=== PATIENT | female | born 1965 | race Caucasian/White ===

== ENCOUNTER → 2016-09-28 12:54 | Outpatient (CLI) | payer MEDICAID | END | disposition home or self-care (01) | LOC: D.US 12:54 | DX: Z12.31 Encounter for screening mammogram for malignant neoplasm of breast (principal) ==

== ENCOUNTER → 2016-10-05 08:45 | Outpatient (CLI) | payer MEDICAID | END | disposition home or self-care (01) | LOC: D.CT 08:45 | DX: R94.39 Abnormal result of other cardiovascular function study (principal) ==

== ENCOUNTER 2016-10-17 20:39 | Emergency (ER) | payer MEDICAID ==
[2016-10-17 21:19] LABS: BASOPHILS 0.3 % (0-2); EOSINOPHILS 2.9 % (0-7); HEMATOCRIT 41.5 % (36.0-48.0); HEMOGLOBIN 14.1 g/dL (12-16); IMMATURE GRANULOCYTES 0.1 % (0-5); LYMPHOCYTES 38.2 % (15-50); MCH 29.2 pg (26.0-34.0); MCV 85.9 fL (80.0-100.0); MEAN PLATELET VOLUME 8.8 fL (7.4-10.4); NEUTROPHILS 48.5 % (40-80); PLATELET COUNT 242 10x3/uL (130-400); RBC 4.83 10x6/uL (4.00-5.40); WBC 6.9 10x3/uL (4.8-10.8)
[2016-10-17 21:59] LABS: ALBUMIN 3.8 g/dL (3.4-5.0); ALKALINE PHOSPHATASE 92 U/L (46-116); ALT (SGPT) 31 U/L (10-68); BILIRUBIN - TOTAL 0.69 mg/dL (0.2-1.3); CALC OSMOLALITY 279 mosm/kg (275-300); CARBON DIOXIDE 19.5 mmol/L (21.0-32.0); CHLORIDE - SERUM 105 mmol/L (98-107); CREATININE - SERUM 0.7 mg/dL (0.6-1.3); GLUCOSE 107 mg/dL (74-106); MAGNESIUM - SERUM 1.6 mg/dL (1.8-2.4); POTASSIUM - SERUM 3.5 mmol/L (3.5-5.1); PROTEIN - SERUM 7.7 g/dL (6.4-8.2); SODIUM 140 mmol/L (136-145); UREA NITROGEN 14 mg/dL (7-18); eGFR NON AFRICAN AMERICAN > 90 mL/min (90-120)
[2016-10-18 00:46] LABS: APPEARANCE HAZY (CLEAR); BILIRUBIN NEGATIVE (NEGATIVE); COLOR YELLOW (YELLOW); GLUCOSE NEGATIVE (NEGATIVE); KETONE NEGATIVE (NEGATIVE); LEUKOCYTE ESTERASE TRACE (NEGATIVE); NITRITE NEGATIVE (NEGATIVE); PROTEIN NEGATIVE (NEGATIVE); SPECIFIC GRAVITY 1.025 (1.005-1.020); UROBILINOGEN NORMAL (NORMAL)
[2016-10-18 00:47] LABS: UDS - AMPHET NEGATIVE QUAL (NEGATIVE); UDS - BARB NEGATIVE QUAL (NEGATIVE); UDS - BENZO NEGATIVE QUAL (NEGATIVE); UDS - COCAINE NEGATIVE QUAL (NEGATIVE); UDS - METH NEGATIVE QUAL (NEGATIVE); UDS - OPIATE NEGATIVE QUAL (NEGATIVE); UDS - PCP NEGATIVE QUAL (NEGATIVE); UDS - THC NEGATIVE QUAL (NEGATIVE)
[2016-10-18 00:53] LABS: WHITE CELLS - URINE 0-5 /hpf (0-5)
[2016-10-18 00:54] LABS: AMORPHOUS SEDIMENT >1+ /lpf (NONE SEEN); BACTERIA MODERATE /hpf (NONE SEEN); EPITHELIAL CELLS 0-5 /hpf (0-5); GRANULAR CAST OCC /lpf (NONE SEEN); HYALINE CAST OCC /lpf (NONE SEEN); RED CELLS - URINE OCC /hpf (0-5)
== END 2016-10-18 05:53 | disposition short-term general hospital (02) ==
LOC: D.ER 20:39
PROVIDERS: Emergency Medicine
DX: F41.9 Anxiety disorder, unspecified (principal); F32.9 Major depressive disorder, single episode, unspecified; E83.42 Hypomagnesemia; F23 Brief psychotic disorder; E05.00 Thyrotoxicosis with diffuse goiter without thyrotoxic crisis or storm

== ENCOUNTER → 2016-11-14 13:33 | Outpatient (CLI) | payer MEDICAID ==
[2016-11-15 10:19] LABS: HEPATITIS C ANTIBODY 0.1 (0.0-0.9)
== END | disposition home or self-care (01) ==
LOC: D.RT 13:33
PROVIDERS: Internal Medicine Cardiovascular Disease
DX: Z01.812 Encounter for preprocedural laboratory examination (principal)

== ENCOUNTER 2016-11-27 07:30 | Inpatient (IN) | payer MEDICAID ==
--- NOTE | 2016-11-24 13:04 | HP ---
PATIENT: MELITON VEE KEVIN MEDICAL RECORD: [id number] ACCOUNT: [id number] LOCATION:[facility] : 65 ADMISSION DATE: 11/27/16 HISTORY AND PHYSICAL EXAMINATION MELITON Silva (51yo, F) ID# [id number]. Date/Time11/22/2016 09:75VDDYV89/22/1966[facility] Dept.NPP_[facility] ClinicProviderGABRIELA RICO MDInsuranceMed Primary: [place] Insurance # : [id number] Employer Name : [employer] Prescription: [employer] MEDICAID ADMINISTRATION - Member is eligible. Chief Complaint Followup: Arteriosclerosis of abdominal aorta PFT/carotid doppler/lab Patient's Care Team Primary Care Provider: LIVE CAIN MD: [address] [place] [address] [address], [place] [address], , [facility] Pharmacies [facility] [place] [address] (ERX): [phone] [facility] [id number], , Vitals BP:150/80 sitting R arm 11/22/2016 10:45 amHR:80R/R 11/22/2016 10:45 amHt:5 ft 7 in 11/22/2016 10:27 amWt:225 lbs 11/22/2016 10:43 amBMI:35.2 11/22/2016 10:43 amAllergies Reviewed Allergies NKDAMedications Reviewed Medications Ciprodex 0.3 %-0.1 % ear drops,atxuyotimm52/06/17 [facility] XjbvmhidgpjrlnDmk-B-Vehs 100 mg edonfgw85/30/15 filledsurescriptsglipiZIDE ER 5 mg tablet, extended release 24 hr10/08/16 filledNygellan Medicaid AdministrationHYDROcodone 10 mg-acetaminophen 325 mg qdexes46/14/17 filledMagellan Medicaid AdministrationlamoTRIgine 100 mg aaicey51/24/17 filledMagellan Medicaid AdministrationlamoTRIgine 150 mg hwegxu10/26/17 filledNygellan Medicaid AdministrationlamoTRIgine 25 mg vdrefg41/01/17 filledMagellan Medicaid Administrationlatanoprost 0.005 % eye drops09/27/16 filledMagellan Medicaid Administrationlidocaine 5 % topical mwoobyxs80/30/15 filledMEDCOlisinopril 20 mg-hydrochlorothiazide 25 mg jkmcpe50/06/15 filledMEDCOmeloxicam 15 mg fwcoyn42/28/15 filledMEDCOmetFORMIN 1,000 mg qqsooq62/06/15 filledMEDCOmethocarbamol 500 mg oehilt35/06/15 filledMEDCOmethocarbamol 750 mg lvuqyi58/24/15 filledMEDCOnicotine 21 mg/24 hr daily transdermal patch02/09/15 filledMEDCOOneTouch Delica Lancets 33 gauge02/17/15 filledMEDCOOneTouch Verio IQ Meter02/17/15 filledMEDCOOneTouch Verio /15/15 filledMEDCOoxyCODONE-acetaminophen 10 mg-325 mg yogcxm73/24/15 filledMEDCOpravastatin 40 mg /23/17 filledMagellan Medicaid Administrationpravastatin 80 mg /05/17 filledMagellan Medicaid Administrationsertraline 100 mg fbgnja67/12/17 filledMagellan Medicaid Administrationsertraline 25 mg nvgqko60/05/17 filledMagellan Medicaid Administrationsertraline 50 mg /08/17 filledMagellan Medicaid AdministrationtraMADol 50 mg cquuaz19/03/15 filledMEDCOvenlafaxine ER 75 mg capsule,extended release 24 hr02/08/15 filledMEDCOProblems Reviewed Problems Diabetes mellitus Depressive disorder Nicotine dependence HISTORY AND PHYSICAL [id number] MELITON VEE Essential hypertension Hemorrhoids Anal fissure Painful rectal bleeding Arteriosclerosis of abdominal aorta - 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 Family History Reviewed Family History Father- Diabetes mellitus (onset age: 60) - Hypertensive disorderMother- Arthritis - Lupus erythematosusSocial History Reviewed Social History Cardiology Family history of heart disease?: N Smoking Status: Current every day smoker Smoker (2 PPD) High blood pressure: Y Exercise level: Occasional Diabetes: Y Alcohol intake: Occasional Marital status: Surgical History Reviewed Surgical History Other - 01/24/2015 - S1/L5 FUSION Other - 1992 - repair of pritruding disc ex lap 1985 fluid in fallopian tubes, cervical ablation 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 HPI Peripheral Vascular Disease Reported by patient. Location: calf; foot Quality: cramping; burning; aching Severity: interferes with normal activity Onset/Timing: continuous Context: during walking; at rest occlusion of abdominal aorta ROS Patient reports exercise intolerance but reports no fever, no night sweats, no significant weight gain, and no significant weight loss; secondary to claudication 15 to 20 feet. She reports muscle aches, muscle weakness, and arthralgias/joint pain HISTORY AND PHYSICAL [id number] NANDA,MELITONSA BROWN but reports no back pain and no swelling in the extremities. She reports depression but reports no sleep disturbances, feeling safe in relationship, and no alcohol abuse. She reports no dry eyes, no irritation, and no vision change. She reports no difficulty hearing and no ear pain. She reports no frequent nosebleeds and no nose/sinus problems. She reports no sore throat, no bleeding gums, no snoring, no dry mouth, no mouth ulcers, no oral abnormalities, and no teeth problems. She reports no jugular vein distension and no swollen glands. She reports no chest pain, no arm pain on exertion, no shortness of breath when walking, no shortn e ss of breath when lying down, no palpitations, and no known heart murmur. She reports no cough, no wheezing, no shortness of breath, and no coughing up blood. She reports no abdominal pain, no vomiting, normal appetite, no diarrhea, not vomiting blood, no nausea, and no constipation. She reports no incontinence, no difficulty urinating, no hematuria, and no increased frequency. She reports no abnormal mole, no jaundice, and no rashes. She reports no loss of consciousness, no weakness, no numbness, no seizu res, no dizziness, and no headaches. She reports no fatigue. She reports no swollen glands and no bruising. She reports no runny nose, no sinus pressure, no itching, no hives, and no frequent sneezing. ROS as noted in the HPI Physical Exam Patient is a 51-year-old female. Constitutional: General Appearance healthy-appearing, well developed, and overweight. Level of Distress NAD. Ambulation ambulating normally; claudication. Cardiovascular: Apical Impulse not displaced or no thrill. Heart Auscultation norm al s1 and s2; no murmurs, rubs, or gallops; and RRR. Arterial Pulses no abdominal aorta bruits, femoral bruits, or popliteal bruits; femoral not palpable (bilateral), popliteal not palpable (bilateral), and dorsalis pedis not palpable (bilaterally); and 2+ bilateral, carotid 2+ bilateral, and femoral 2+ bilateral. Edema no edema or varicosities. Lungs: Repiratory Effort no dyspnea. Percussion no hyperresonance or dullness or flatness. Auscultation no wheezing, rhonchi, or rales / crackles and breathing sounds normal, good air movement, and CTA except as noted. Abdomen: Bowl Sounds normal. Inspection and Palpation no tenderness, guarding, masses, or rebound tenderness and soft and non-distended. Liver non-tender and no hepatomegaly. Spleen non-tender and no splenomegaly. Hernia none palpable. Musculoskeletal System: Gait And Stance normal gait and stance. Digits and Nails normal nails, no cyanosis, and abnormal nails. Neurologic: Cranial Nerves grossly intact. Reflexes DTRs 2+ bilaterally throughout. Sensation grossly intact. Lymph Nodes: Lymph Nodes no cervical LAD, supraclavicular LAD, axillary LAD, or inguinal LAD. Eyes: Lids and Conjunctivae no discharge or pallor and non-injected and xanthelasma (OS). Pupils PERRLA. Cornea grossly intact. EOM EOMI. Lens clear. Sclera non-icteric. Neck: Neck no masses, enlarged lymph nodes, or carotid bruits and supple and trachea midline. Thyroid no enlargement or nodules and non-tender. HISTORY AND PHYSICAL [id number] MELITON VEE Skin: Inspection and Palpation no rash, lesions, ulcers, jaundice, or abnormal nevi. Assessment / Plan pulmonary function tests satisfactory for surgery Carotid Doppler study satisfactory mild disease Hepatitis screen was negative Occlusion of abdominal aorta and severe claudication 1. Arteriosclerosis of abdominal aorta I70.0: Atherosclerosis of aorta Discussion Notes I have discussed her disease process with her in detail as well as the alternative methods of treatment. We discussed aorto bifemoral bypass and the expected benefits and risks which incl ude bleeding, infection, stroke, , and the imponderables. She understands all of the above and wishes to proceed with aortobifemoral bypass. She will need a bowel prep Prior to surgery Schedule GABRIELA RICO MD at 1304 CC: [id number] DICTATION DATE: 11/22/1630 [employer] SALES REPRESENTATIVE: MAXWELL 11/23/16 1405 PRE [facility] [address] [place] [address]
[2016-11-26 10:39] LABS: APTT 24.5 SECONDS (22.8-39.4); INR 0.81 (0.85-1.17); PROTIME 11.1 SECONDS (11.6-15.0)
[2016-11-26 10:49] LABS: ALBUMIN 3.6 g/dL (3.4-5.0); ALKALINE PHOSPHATASE 103 U/L (46-116); ALT (SGPT) 25 U/L (10-68); CALC OSMOLALITY 285 mosm/kg (275-300); CALCIUM 9.1 mg/dL (8.5-10.1); CARBON DIOXIDE 27.7 mmol/L (21.0-32.0); CHLORIDE - SERUM 104 mmol/L (98-107); CREATININE - SERUM 0.6 mg/dL (0.6-1.3); POTASSIUM - SERUM 4.3 mmol/L (3.5-5.1); PROTEIN - SERUM 7.5 g/dL (6.4-8.2); SODIUM 139 mmol/L (136-145); UREA NITROGEN 12 mg/dL (7-18); eGFR NON AFRICAN AMERICAN > 90 mL/min (90-120)
[2016-11-26 10:50] LABS: GLUCOSE 250 mg/dL (74-106)
[2016-11-26 11:01] LABS: BASOPHILS 0.3 % (0-2); EOSINOPHILS 2.3 % (0-7); HEMATOCRIT 44.5 % (36.0-48.0); HEMOGLOBIN 14.9 g/dL (12-16); IMMATURE GRANULOCYTES 0.1 % (0-5); LYMPHOCYTES 30.9 % (15-50); MCHC 33.5 g/dL (31.0-37.0); MCV 86.7 fL (80.0-100.0); MEAN PLATELET VOLUME 9.3 fL (7.4-10.4); MONOCYTES 7.8 % (2-11); NEUTROPHILS 58.6 % (40-80); PLATELET COUNT 268 10x3/uL (130-400); RBC 5.13 10x6/uL (4.00-5.40); WBC 6.8 10x3/uL (4.8-10.8)
[2016-11-26 11:15] LABS: APPEARANCE CLEAR (CLEAR); BILIRUBIN NEGATIVE (NEGATIVE); COLOR STRAW (YELLOW); EPITHELIAL CELLS 0-5 /hpf (0-5); GLUCOSE 50 mg/dL (NEGATIVE); KETONE NEGATIVE (NEGATIVE); LEUKOCYTE ESTERASE TRACE (NEGATIVE); NITRITE NEGATIVE (NEGATIVE); PROTEIN NEGATIVE (NEGATIVE); UROBILINOGEN NORMAL (NORMAL); WHITE CELLS - URINE OCC /hpf (0-5)
[2016-11-26 11:16] LABS: BACTERIA MODERATE /hpf (NONE SEEN); MUCUS <1+ /lpf (NONE SEEN)
[~2016-11-27] VITALS: Ht 172.7 cm; Wt 111.9 kg
[2016-11-27] VITALS (40 sets, daily range): BP systolic 90–145; BP diastolic 46–72; BMI 37.1
[2016-11-27 06:42] LABS: POTASSIUM - SERUM 3.5 mmol/L (3.5-5.1)
[~2016-11-27 07:30] MED LIST: GLUCOPHAGE1000 MG PO; HYDROCODONE-APA1 TAB PO; LAMICTAL150 MG PO; LISINOPRIL-HCTZ1 T13 PO; PRAVACHOL80 MG PO; VENTOLIN HFA18 GM INH; XALATAN 0.0052.5 ML EACH EYE
--- NOTE | 2016-11-27 14:34 | NUR ---
PT ARRIVED BY BED FROM OR WITH OR TEAM. SWITCHED OVER TO ICU MONITORS. VENT A/C R14 TV 650 P5 FIO2 AT 100%. BILATERAL HEELS BRIDGED. EPIDURAL INFUSING AT 8CC/HR BASAL RATE.
[2016-11-27 14:59] LABS: HEMATOCRIT 41.9 % (36.0-48.0); MCHC 33.4 g/dL (31.0-37.0); MCV 86.9 fL (80.0-100.0); MEAN PLATELET VOLUME 8.8 fL (7.4-10.4); RBC 4.82 10x6/uL (4.00-5.40); RDW 14.4 % (11.5-14.5)
[2016-11-27 15:02] LABS: WBC 14.6 10x3/uL (4.8-10.8)
--- NOTE | 2016-11-27 15:06 | NUR ---
PT MAXED ON NITRO GTT. SWITCHED OVER TO CLEVIPREX. WILL TITRATE PER MD ORDERS.
[2016-11-27 15:44] LABS: ALBUMIN 2.9 g/dL (3.4-5.0); ALKALINE PHOSPHATASE 76 U/L (46-116); ALT (SGPT) 29 U/L (10-68); BILIRUBIN - TOTAL 0.54 mg/dL (0.2-1.3); CALCIUM 7.5 mg/dL (8.5-10.1); CARBON DIOXIDE 24.1 mmol/L (21.0-32.0); CHLORIDE - SERUM 108 mmol/L (98-107); CREATININE - SERUM 0.7 mg/dL (0.6-1.3); POTASSIUM - SERUM 3.8 mmol/L (3.5-5.1); PROTEIN - SERUM 6.1 g/dL (6.4-8.2); SODIUM 144 mmol/L (136-145); UREA NITROGEN 10 mg/dL (7-18); eGFR NON AFRICAN AMERICAN > 90 mL/min (90-120)
[2016-11-27 15:45] LABS: CALC OSMOLALITY 294 mosm/kg (275-300); GLUCOSE 261 mg/dL (74-106)
--- NOTE | 2016-11-27 16:10 | NUR ---
PT MORE ALERT. ABLE TO ANSWER YES/NO QUESTIONS. PT MILDLY AGGIATATED AT THIS TIME. REORIENTED PT AND ENCOURAGED PT TO STAY CALM. COMPUTER AIDED DESIGN TECHNICIAN BUTTON ON EPIDURAL PUSHED.
--- NOTE | 2016-11-27 17:35 | NUR ---
DR. RICO AT BEDSIDE. UPDATED ON PT'S STATUS. PT REACHING TOWARDS ABDOMEN AND SHAKING HEAD YES WHEN ASKED IF SHE IS HURTING. WILL PAGE ELECTRICIAN POWERHOUSE ANESTHESIA PER DR. RICO REQUEST.
--- NOTE | 2016-11-27 17:50 | NUR ---
DR. KIM NOTIFIED OF EPIDURAL NOT HELPING PT'S PAIN AT THIS TIME. HE IS CURRENTLY IN SURGERY, BUT WILL ROUND WHEN HE IS FINISHED.
--- NOTE | 2016-11-27 18:18 | NUR ---
PT RESTING COMFORTABLY AT THIS TIME. EYES CLOSED. VSS.
--- NOTE | 2016-11-27 19:10 | NUR ---
DR. KIM AND DR. LEBRON AT BEDSIDE. PT UP TO SIDE OF BED WITH MODERATE AMOUNT OF ASSISTANCE. ABLE TO FOLLOW COMMANDS. DR. KIM REMOVED PREVIOUS EPIDURAL CATHETER AND RESITED NEW CATHETER. PT TOLERATED WELL. BP 97/45. CLEVIPREX GTT STOPPED. EPIDURAL SECURED BY ANESTHESIA. PT ASSISTED BACK INTO BED. PT IS REPORTING IMPOVED PAIN. HANDOFF REPORT GIVEN TO MICAELA GARAY RN.
--- NOTE | 2016-11-27 19:15 | NUR ---
PT REC'D LYING IN BED, HOB 30 DEGREES, AWAKE AND ALERT FOLLOWING COMMANDS ON VENT, 8.0 ETT TAPED @ 22CM LIPLINE, SEE FLOWSHEET FOR VENT SETTINGS, PT EASILY AGITATED, RIGHT NARE NGT SECURED WITH BENITEZ AND MARKED TO LIWS, LDLSCL DRSG CDI WITH D51/2NS WITH 40KCL @ 125CC/HR, CLEVIPREX ON HOLD, AND ZINACEF @ 11.4CC/HR, MIDLINE ABD DRSG CDI, BS ABSENT, BILAT GROIN DRSGS CDI, LEFT RADIAL NOEMY WITH FLEXION BOARD IN USE, LEVELED AND ZEROED AND RETURN OF APPROPRIATE WAVEFORM, CRITICORE STEWARD PATENT WITH CLEAR YELLOW URINE, BILAT EXTS WARM TO TOUCH, ALL PULSES BY DOPPLER, BILAT SOFT WRIST RESTRAINTS INTACT, AIR OVERLAY MATTRESS IN USE.
--- NOTE | 2016-11-27 20:30 | NUR ---
PT CALMER AT THIS TIME, NODS HEAD YES WHEN ASKED IF PAIN UNDER CONTROL, EPIDURAL INFUSING @ 8CC/HR WITH 4CC Q15MIN BOLUS, TAPED SECURELY TO BACK, WILL CONT TO MONITOR CLOSELY FOR CHANGES.
--- NOTE | 2016-11-27 20:45 | NUR ---
BP ELEVATED, CLEVIPREX RESUMED @ 3MG/HR OR 6CC
--- NOTE | 2016-11-27 21:00 | NUR ---
EVENING MEDS GIVEN, PT DOZING AT INTERVALS, BP IMPROVED
--- NOTE | 2016-11-27 21:20 | NUR ---
SON AT BS, UPDATE GIVEN AND QUESTIONS ANSWERED, PT AGITATED AT INTERVALS REQUIRES CONTINUOUS CALMING, NURSE IN ROOM
--- NOTE | 2016-11-27 21:50 | NUR ---
RT AT BS, PT PLACED ON CPAP, ORAL CARE PROVIDED AND LIP MOISTURIZER APPLIED, PT IMMEDIATELY STARTED BREATHING 35 WHEN PLACED ON CPAP, PLACED ON SIMV, SPOKE WITH PATIENT ON WHAT WAS REQUIRED TO GET THE ETT REMOVED, NODS HEAD IN UNDERSTANDING, PT PLACED ON CPAP, RESP 22-24, WILL MONITOR CLOSELY FOR CHANGES.
--- NOTE | 2016-11-27 22:15 | NUR ---
PT HAVING PERIODS OF APNEA ON CPAP
--- NOTE | 2016-11-27 22:35 | NUR ---
RT AT FOR ABG, PT CONTINUES WITH PERIODS OF APNEA, PT PLACED BACK ON SIMV 6.0 TV 650, FIO2 40%, PEEP 5, PS 10, CLEVIPREX @ 2MG/HR.
--- NOTE | 2016-11-27 23:05 | NUR ---
PT COUGHING AND GAGGING AGAINST TUBE, THICK BEIGE SECRETIONS FROM ETT, ORAL CARE PROVIDED, PT AGITATED PULLING AT RESTRAINTS, ATTEMPTED TO CALM PT, POTASSIUM 3.2 ON ABG, SERUM DRAWN AND SENT TO LAB
--- NOTE | 2016-11-27 23:40 | NUR ---
SERUM POTASSIUM 3.6, PT RESTING EYES CLOSED ON VENT, RESP 22, BP STABLE, CLEVIPREX ON HOLD AT THIS TIME, BILAT PULSES TO LOWER EXT'S BY DOPPLER.
[2016-11-28] VITALS (82 sets, daily range): BP systolic 104–142; BP diastolic 48–74; Ht 172.7 cm; Wt 111.9 kg
--- NOTE | 2016-11-28 00:45 | NUR ---
FSBS 259, 6 UNITS REGULAR INSULIN GIVEN, PT CALM, RESTING EYES CLOSED, VSS.
--- NOTE | 2016-11-28 01:30 | NUR ---
PT THRASHING ABOUT IN BED COUGHING, SUCTIONING BEIGE SECRETIONS FROM ETT, PT REPOSITIONED IN BED FOR COMFORT, TITRATING CLEVIPREX FOR EFFECT.
--- NOTE | 2016-11-28 03:50 | NUR ---
RT A BS, PT PLACED ON CPAP, RESP RATE 22-24, WILL MONITOR CLOSELY FOR CHANGES.
--- NOTE | 2016-11-28 04:30 | NUR ---
RT AT BS, NIF AND VC COMPLETED, PT EXTUBATED TO 3LITER NC, ORAL CARE PROVIDED, PT COMPLAINS OF ABDOMINAL PAIN, RATING "8" ON 0-10 PAIN SCALE, PT REMINDED EPIDURAL INFUSING AND COULD USE EPIDURAL BUTTON FOR BREAKTHROUGH PAIN, PT NODS HEAD IN UNDERSTANDING, EPIDURAL BUTTON PUSHED AT THIS TIME.
--- NOTE | 2016-11-28 05:15 | NUR ---
PT REPOSITIONED UP AND ONTO RIGHT SIDE SUPPORTED WITH PILLOW, PT DISLIKES THE ORAL SWABS, LEMON GLYCERIN SWABS PROVIDED.
--- NOTE | 2016-11-28 06:05 | NUR ---
AM LAB DRAWN AND SENT TO LAB, ROUTINE MYLANTA GIVEN DOWN NGT AND HELD X 30 MINUTES, NO VISITORS IN AT THIS TIME.
[2016-11-28 06:27] LABS: HEMOGLOBIN 12.6 g/dL (12-16); MCH 28.8 pg (26.0-34.0); MCHC 33.2 g/dL (31.0-37.0); MEAN PLATELET VOLUME 8.9 fL (7.4-10.4); RBC 4.37 10x6/uL (4.00-5.40); RDW 14.2 % (11.5-14.5); WBC 11.5 10x3/uL (4.8-10.8)
[2016-11-28 06:44] LABS: ALBUMIN 2.6 g/dL (3.4-5.0); ALKALINE PHOSPHATASE 59 U/L (46-116); ALT (SGPT) 34 U/L (10-68); BILIRUBIN - TOTAL 0.53 mg/dL (0.2-1.3); CALCIUM 7.6 mg/dL (8.5-10.1); CARBON DIOXIDE 24.4 mmol/L (21.0-32.0); CHLORIDE - SERUM 109 mmol/L (98-107); CREATININE - SERUM 0.6 mg/dL (0.6-1.3); POTASSIUM - SERUM 3.2 mmol/L (3.5-5.1); PROTEIN - SERUM 5.8 g/dL (6.4-8.2); SODIUM 145 mmol/L (136-145); UREA NITROGEN 9 mg/dL (7-18); eGFR NON AFRICAN AMERICAN > 90 mL/min (90-120)
[2016-11-28 06:45] LABS: CALC OSMOLALITY 293 mosm/kg (275-300); GLUCOSE 206 mg/dL (74-106)
--- NOTE | 2016-11-28 07:30 | NUR ---
SHIFT ASSESSMENT VIA FLOWSHEET, SEE FOR DETAILS.
--- NOTE | 2016-11-28 08:12 | NUR ---
DR RICO HERE TO SEE PT. MYLANTA AND H2O FLUSH ADMINISTERED PER ORDER VIA NGT. VSS. PT HAS CALL LIGHT AND LDR NURSE WITHIN REACH. OK FOR ICE CHIPS.
--- NOTE | 2016-11-28 09:45 | NUR ---
ANSWERED PT CALL LIGHT. PT ANXIOUS AND TEAFUL. STATES, "I'M REALLY WORRIED ABOUT SOMETHING, CAN YOU LOOK AT? I CAN LIFT MY RIGHT LEG, BUT NOT MY LEFT." PT DEMONSTRATES ABILITY TO RAISE RIGHT LEG, BUT NOT THE LEFT. PT ASSESSED, CAN WIGGLE TOES AND HAS SENSATION IN THE LEFT LEG. ANESHESIA PROVIDER PAGED.
--- NOTE | 2016-11-28 09:48 | NUR ---
RETURN CALL RECEIVED FROM DR LEBRON, PT STATUS REPORTED. NO INTERVENTION REQUIRED AT THIS TIME. WILL CONTINUE TO MONITOR PT STATUS.
--- NOTE | 2016-11-28 11:30 | NUR ---
REASSESSMENT VIA FLOWSHEET, SEE FOR DETAILS.
--- NOTE | 2016-11-28 12:05 | NUR ---
PT'S DAUGHTER AT BEDSIDE, UPDATE PROVIDED. VSS. MOVES EXTREMITIES X4. CALL LIGHT AND RN FLIGHT WITH REACH.
--- NOTE | 2016-11-28 13:34 | NUR ---
* Is the patient Alert and Oriented? Yes 0 * How many steps to enter\exit or inside your home? 0 0 * PCP Dr. Ricks 0 * Pharmacy [facility] on [address] 0 * Preadmission Environment Home with Family 0 * ADLs Independent 0 * Equipment Cane 0 * List name and contact numbers for known caregivers / representatives who currently or will assist patient after discharge: Daljit Bridges [phone] Dtjase Lantigua [phone] 0 * Additional services required to return to the preadmission environment? No 0 * Can the patient safely return to the preadmission environment? Yes 0 * Has this patient been hospitalized within the prior 30 days at any hospital? No Patient Name: MELITON VEE Admission Status: Elective Accout number: [id number] Admission Date: 11-27-2016 : 1965 Admission Diagnosis: Attending: LILIANA Current LOS: 1 Anticipated DC Date: 12-04-2016 Planned Disposition: Home Primary Insurance: MEDICAID [place] Discharge Planning Comments: CM met with patient to assess dc plans/needs. Patient states she lives at home with her two adult children. She reports she is independent with all ADL's & IADL's but does use a cane PRN. She denies having had home health services in the past. At dc, she will return home with her family. She is agreeable to home health services if necessary. CM will follow & assist as needed. Online Media Buyer: Lisa Watson
--- NOTE | 2016-11-28 15:30 | NUR ---
REASSESSMENT VIA FLOWSHEET, SEE FOR DETAILS.
--- NOTE | 2016-11-28 19:20 | NUR ---
REPORT REC'D AND CARE ASSUMED, REC'D PT ON O2 @ 2LITERS AWAKE, ALERT, ORIENTED X 4, RIGHT NARE NGT TO LIWS SECURED WITH BENITEZ, LDLSCL DRSG CDI WITH D51/2NS WITH 40KCL @ 100CC/HR, LEFT RADIAL NOEMY WITH FLEXION BOARD IN USE, ABD ROUND, SEMISOFT, MIDLINE DRSG CDI, PT REPORTS SOME TENDERNESS, BILAT GROIN DRSGS CDI, NO BLEEDING OR HEMATOMA NOTED, CRITICORE STEWARD PATENT DRAINING CLEAR YELLOW URINE, BILAT SCDS INTACT AND ON, RIGHT PP PALPABLE, LEFT PP BY DOPPLER, EPIDURAL INFUSING TO BACK, DRSG CDI, EPIDURAL INFUSING @ 8CC/HR WITH 4CC Q15MIN BOLUS AVAILABLE FOR [id number] PAIN, PT RATING PAIN " 4" ON 0-10 PAIN SCALE, AIR OVERLAY MATTRESS IN USE, SR UP X 2, CALL LIGHT AND RETAIL RESET MERCHANDISER IN REACH.
--- NOTE | 2016-11-28 20:35 | NUR ---
PT REPOSITIONED UP IN BED, PT TURNED TO LEFT SIDE SUPPORTED WITH PILLOW, PT IMMEDIATELY TEARFUL, REFUSES TO STAY ON LEFT SIDE, REPOSIITIONED ONTO BACK FSBS 121, NO COVERAGE REQUIRED, EVENING MEDS GIVEN, PT DENIES NEEDS.
--- NOTE | 2016-11-28 21:00 | NUR ---
CUP OF ICE PROVIDED ON REQUEST, SON @ BS, UPDATE GIVEN AND QUESTIONS ANSWERED, PT DENIES FURTHER NEEDS, VISIBLE TO NURSES STATION
--- NOTE | 2016-11-28 23:00 | NUR ---
REASSESSMENT COMPLETED, PT REPOSITIONED TO RIGHT SIDE SUPPORTED WITH PILLOWS, COMPLAINS OF THROAT BEING SORE, ICE PROVIDED, REQUESTING JUICE, EXPLAINED TO PT SHE COULD ONLY HAVE ICE ONLY, VERBALIZES UNDERSTANDING, VSS, WILL CONT TO MONITOR CLOSELY FOR CHANGES.
[2016-11-29] VITALS (28 sets, daily range): BP systolic 98–129; BP diastolic 45–102
--- NOTE | 2016-11-29 00:30 | NUR ---
FSBS 130, NO COVERAGE REQUIRED, PT SLEEPING AT INTERVALS, VSS, VISIBLE TO NURSES STATION.
--- NOTE | 2016-11-29 02:00 | NUR ---
PT RESTING EYES CLOSED, RESP EVEN AND UNLABORED, VSS.
--- NOTE | 2016-11-29 03:00 | NUR ---
REASSESSMENT COMPLETE, PT AWAKE WATCHING TV, PRODUCTIVE COUGH NOTED, IS DONE WITH PT, PT PULLED 1500 X 6 AND 1250 THE REST, PRODUCTIVE COUGH OF DAY SPUTUM, PT ASSISTED TO POSITION FOR COMFORT, DENIES FURTHER NEEDS.
--- NOTE | 2016-11-29 03:28 | NUR ---
PT AWAKE COMPLAINS OF "ITCHING LIKE CRAZY", 25MG BENADRYL GIVEN AT THIS TIME, FRESH ICE CHIPS PROVIDED
--- NOTE | 2016-11-29 04:00 | NUR ---
[id number] @ BS FOR AM CXR
--- NOTE | 2016-11-29 04:30 | NUR ---
RT AT BS, BREATHING TX IN PROGRESS, STEWARD CARE PROVIDED PER PROTOCOL, PT DENIES NEEDS.
--- NOTE | 2016-11-29 05:40 | NUR ---
AM LAB DRAWN FROM CV AND SENT TO LAB, NOEMY NULL AT TIMES WITH DAMPENED WAVEFORM
[2016-11-29 05:53] LABS: HEMATOCRIT 35.3 % (36.0-48.0); HEMOGLOBIN 11.3 g/dL (12-16); MCH 28.5 pg (26.0-34.0); RBC 3.96 10x6/uL (4.00-5.40); RDW 14.6 % (11.5-14.5); WBC 12.3 10x3/uL (4.8-10.8)
[2016-11-29 06:19] LABS: MCV 89.1 fL (80.0-100.0)
[2016-11-29 06:33] LABS: ALBUMIN 2.5 g/dL (3.4-5.0); ALKALINE PHOSPHATASE 55 U/L (46-116); ALT (SGPT) 33 U/L (10-68); CALC OSMOLALITY 280 mosm/kg (275-300); CARBON DIOXIDE 25.1 mmol/L (21.0-32.0); CHLORIDE - SERUM 106 mmol/L (98-107); CREATININE - SERUM 0.6 mg/dL (0.6-1.3); GLUCOSE 174 mg/dL (74-106); POTASSIUM - SERUM 4.5 mmol/L (3.5-5.1); PROTEIN - SERUM 5.9 g/dL (6.4-8.2); SODIUM 139 mmol/L (136-145); UREA NITROGEN 10 mg/dL (7-18); eGFR NON AFRICAN AMERICAN > 90 mL/min (90-120)
--- NOTE | 2016-11-29 07:45 | NUR ---
SHIFT ASSESSMENT VIA FLOWSHEET, SEE FOR DETAILS.
--- NOTE | 2016-11-29 09:20 | NUR ---
A LINE D/C'D PER ORDER WITH CATH TIP INTACT. PRESSURE APPLIED UNTIL BLEEDING SUBSIDED.
--- NOTE | 2016-11-29 09:50 | NUR ---
DR CAMPOVERDE AT BEDSIDE.
--- NOTE | 2016-11-29 09:55 | NUR ---
Nutrition Follow Up: Chart reviewed. Pt is POD 2 Aorto-Bifemoral Bypass. Pt continues NPO. Wt gain since admit noted. Labs reviewed - Glucose elevated. Meds noted including D5 1/2NS KCl @ 50 ml/hr, Flagyl, Humulin. Rec advancing diet as tolerated when medically feasible. RD will continue to monitor pt progress.
--- NOTE | 2016-11-29 11:25 | NUR ---
REASSESSMENT VIA FLOWSHEET, SEE FOR DETAILS.
--- NOTE | 2016-11-29 12:20 | NUR ---
NO VISITORS AT THIS TIME. PT POSITIONED FOR COMFORT. VSS. CALL LIGHT WITHIN REACH.
--- NOTE | 2016-11-29 14:10 | NUR ---
DR LEBRON HERE TO REPLACE EPIDURAL BAG.
--- NOTE | 2016-11-29 15:30 | NUR ---
REASSESSMENT VIA FLOWSHEET, SEE FOR DETAILS.
--- NOTE | 2016-11-29 18:05 | NUR ---
VISITOR AT BEDSIDE. PT AWAKE AND CONVERSING WITH VISITOR. VSS.
--- NOTE | 2016-11-29 19:25 | NUR ---
SHIFT ASSESSMENT COMPLETED. SEE ASSESSMENT PER FLOWSHEET. AWAKE, ALERT, ORIENTED. LEFT LEG WEAKER THAN RIGHT DUE TO EPIDURAL PLACEMENT. WILL MONITOR.
--- NOTE | 2016-11-29 21:10 | NUR ---
SON AT BEDSIDE FOR VISITATION. POPSICLES AND ICE GIVEN PER REQUEST. WILL MONITOR.
--- NOTE | 2016-11-29 21:40 | NUR ---
AFTER SON VISITED, VAGINAL FLAGYL APPLICATED. SMEAR OF LIGHT BROWN BM NOTED ON SHEETS. COMPLETED PARTIAL BATH AND LINEN CHANGE COMPLETED. EPIDURAL DRSG INTACT WITHOUT ANY LEAKAGE. LEFT LEG MORE WEAK STILL FROM EPIDURAL THAN RIGHT. FOELY CATHETER CARE COMPLETED. PULLED UP AND REPOSITIONED IN BED. DENIES TO BE TURNED ON SIDE AT THIS TIME. WILL MONITOR.
--- NOTE | 2016-11-29 23:25 | NUR ---
REASSESSMENT COMPLETED. SEE ASSESSMENT FLOWSHEET. REQUESTED MORE ICE AND A POPSICLE. SUCTION CANNISTER CHANGED OUT AT THIS TIME. ORANGE COLORED DRAINAGE BEING REMOVED DUE TO COLOR OF POPSICLE. NO CHANGES IN ASSESSMENT NOTED. THANKING ME FOR CARE. WILL MONITOR.
[2016-11-30] VITALS (27 sets, daily range): BP systolic 93–157; BP diastolic 37–79
--- NOTE | 2016-11-30 00:52 | NUR ---
FSBS ASSESSED, NO INSULIN NEEDED. PULLED UP AND TURNED. BECAME TEARFUL DUE TO LEGS BEING SOMEWHAT NUMB.
--- NOTE | 2016-11-30 01:30 | NUR ---
PULLED UP IN BED AND REPOSITIONED FOR COMFORT. WILL MONITOR.
--- NOTE | 2016-11-30 03:00 | NUR ---
REASSESSMENT COMPLETED. SEE ASSESSMENT FLOWSHEET. B/P CUFF ADJUSTED. WILL MONITOR.
--- NOTE | 2016-11-30 04:00 | NUR ---
PORTABLE CHEST XRAY COMPLETED. TOLERATED WELL.
--- NOTE | 2016-11-30 05:50 | NUR ---
AM LABS DRAWN FROM LEFT SV CVL WITHOUT DIFFICULTY. EYES CLOSED. MOUTH OPEN. CUP IN HAND ON ABDOMEN. OPENS EYES BRIEFLY. WILL MONITOR.
[2016-11-30 06:17] LABS: HEMATOCRIT 33.4 % (36.0-48.0); MCH 29.1 pg (26.0-34.0); MCHC 32.9 g/dL (31.0-37.0); MCV 88.4 fL (80.0-100.0); RBC 3.78 10x6/uL (4.00-5.40); RDW 14.3 % (11.5-14.5); WBC 10.2 10x3/uL (4.8-10.8)
[2016-11-30 06:38] LABS: ALBUMIN 2.3 g/dL (3.4-5.0); ALKALINE PHOSPHATASE 60 U/L (46-116); ALT (SGPT) 29 U/L (10-68); BILIRUBIN - TOTAL 0.72 mg/dL (0.2-1.3); CALC OSMOLALITY 278 mosm/kg (275-300); CALCIUM 8.1 mg/dL (8.5-10.1); CARBON DIOXIDE 26.7 mmol/L (21.0-32.0); CHLORIDE - SERUM 105 mmol/L (98-107); CREATININE - SERUM 0.5 mg/dL (0.6-1.3); GLUCOSE 131 mg/dL (74-106); POTASSIUM - SERUM 4.2 mmol/L (3.5-5.1); PROTEIN - SERUM 5.9 g/dL (6.4-8.2); SODIUM 139 mmol/L (136-145); UREA NITROGEN 9 mg/dL (7-18); eGFR NON AFRICAN AMERICAN > 90 mL/min (90-120)
--- NOTE | 2016-11-30 07:57 | NUR ---
PT VERY DEMANDING THIS MORNING STATING THE CONFIGURATOR NURSE REFUSED TO TURN AND REPOSITION HER. STATES "SOME OF THE NURSES HAVE BEEN SO MEAN TO ME" PT LINENS STRAIGHTED OUT, LINES UNTANGLED, TURNED REPOSITIONED, ICE PROVIDED.
--- NOTE | 2016-11-30 08:04 | NUR ---
PT SCREAMING AT THIS NURSE. REQUESTED PT TO TALK IN A MANNER THIS NURSE CAN UNDERSTAND. PT CONTINUES TO SCREAM.
--- NOTE | 2016-11-30 08:07 | NUR ---
DR. RICO AT BEDSIDE. PT NOW STATING THIS NURSE HAS REFUSED TO CLEAN HER OF BM AND IS "BEING MEAN". DR RICO SPEAKING WITH PT.
--- NOTE | 2016-11-30 08:45 | NUR ---
PT TURNED AND REPOSITIONED. HAD SMALL SMEAR OF BM THAT WAS CLEANED UP.
--- NOTE | 2016-11-30 09:24 | NUR ---
PT NGT REMOVED, TIP INTACT. NO BLEEDING. CLEAR LIQUID DIET TRAY PROVIDED. PT QUESTIONED BEER ON TRAY. SAYS SHE DOES DRINK EVERY ONCE IN A WHILE, BUT NOT EVERY DAY. SAYS DOESN'T WANT THE BEER. ASKED FOR ADDITIONAL JUICE AND BROTH.
--- NOTE | 2016-11-30 09:58 | NUR ---
PT CALLED ME IN TO ROOM TO TELL ME SHE HAD ANOTHER BOWEL MOVEMENT. GATHERED SUPPLIES AND RETURNED TO ROOM. PT THEN SAID "I'M STILL GOING, WE MIGHT WANT TO WAIT A LITTLE LONGER, I'LL CALL WHEN I'M DONE"
--- NOTE | 2016-11-30 10:47 | NUR ---
PT CLEANED UP MULTIPLE TIMES FROM LOOSE BOWELS. EPIDURAL HAS BEEN REMOVED BY DR LEBRON. [facility] MORPHINE INITIATED. PT INSTRUCTED ON USE. NOW WATCHING TELEVISION.
--- NOTE | 2016-11-30 12:24 | NUR ---
PT HAS C/O MORPHINE MAKING HER "EMOTIONAL AND CRY" WANTED TO CHANGE PAIN MEDICATIONS. SPOKE WITH ADEBAYO RN REGARDING PT REQUEST. RESPONSE IS NOT AN ALLERGY AND THE MEDICATION IS HELPING WITH THE PAIN AT THIS TIME. NO CHANGES ARE NEEDED. PT HAS HAD HOME MEDICATIONS RESUMED. THIS SHOULD HELP. SPOKE WITH PATIENT AND LET HER KNOW WHAT ADEBAYO AND I HAD DISCUSSED. SHE APPEARED ACCEPTING OF THIS ANSWER. SHE THEN WANTED TO DISCUSS HER OTHER MEDICATIONS, WHICH WE DID.
--- NOTE | 2016-11-30 13:58 | NUR ---
PT STEWARD CATHETER HAS BEEN REMOVED. PT IMMEDIATELY FELT NEED TO GET UP TO HAVE BOWEL MOVEMENT. PROVIDED BEDSIDE COMMODE FOR FIRST ATTEMPT AT GETTING UP. PT ABLE TO PIVOT WITH LITTLE ASSIST. SAYS USES WALKER OR CANE AT HOME TO GET AROUND. WALK OBTAINED FOR HER USE. NO BOWEL MOVEMENT PRODUCED, BUT WAS ABLE TO URINATE A SMALL AMOUNT. PT WANTED AIR MATTRESS REMOVED FROM BED SO THAT SHE CAN LAY FLAT. FRESH LINENS PROVIDED PT C/O PAIN UP MOVEMENT. BOLUS DOSE GIVEN.
--- NOTE | 2016-11-30 15:16 | NUR ---
PT HAS BEEN UP TO WALK WITH PHYSICAL THERAPY. SHE ASKED FOR THE AIR MATTRESS TO BE PLACED BACK ON HER BED WHILE SHE'S UP. HAS BEEN TO TOILET, AND NOW UP IN CHAIR AT BEDSIDE
--- NOTE | 2016-11-30 15:43 | NUR ---
PT ASSISTED BACK TO BED PER HER REQUEST.
--- NOTE | 2016-11-30 16:45 | NUR ---
PT DINNER TRAY PROVIDED. BEER NOT GIVEN PER PT REFUSAL AND CONVERSATIONS HAD THROUGHOUT DAY THAT SHE DOESN'T WANT IT. PT HAS ALSO ASKED TO HAVE DR RICO CALLED ABOUT HER PAIN MEDICATION. IT IS JUST NOT HELPING AND SHE WANTS IT CHANGED. "ALL IT IS DOING IS MAKING ME HIGH, IT ISN'T EVEN TOUCHING THE PAIN"
--- NOTE | 2016-11-30 17:27 | NUR ---
PT GIVEN 30MG TORADOL INJ. ALSO ASSISTED UP TO TOILET. URINATED ONLY. C/O GAS. NOW SITTING UP TO SIDE OF BED.
--- NOTE | 2016-11-30 17:54 | NUR ---
PT ASSISTED UP TO TOILET.
--- NOTE | 2016-11-30 18:14 | NUR ---
NEW BAG FLUIDS, NEW VIAL MORPHINE CNC MILL OPERATOR AND TUBINGS STARTED. LINES DATED FOR CHANGE ON SATURDAY.
--- NOTE | 2016-11-30 19:30 | NUR ---
SITTING UP ON SIDE OF BED. AMBULATED WITH WALKER TO BATHROOM TO USE COMMODE. ON ROOM AIR. O2 SAT 89%. DENIES TO WEAR O2 AT THIS TIME. WEARING INCONTINENT BRIEF. LINENS STRAIGHTENED ON BED. BACK TO BED WITH MINIMAL ASSIST. CONNECTED BACK TO MONITORING EQUIPMENT. ASSESSMENT COMPLETED. SEE ASSESSMENT FLOWSHEET FOR DETAILS. PLACED SCD WRAPS BACK ON AND TURNED ON. LEFT SC CVL WITH D51/2NS W/ 40MEQ KCL @ 50, TURNED DOWN TO 20ML/HR PER ORDERS. ONCE BACK IN BED PLACED O2 @ 1LPM/NC. AIR OVERLAY MATTRESS INFLATED. WILL MONITOR.
--- NOTE | 2016-11-30 20:40 | NUR ---
EYES CLOSED. MOUTH OPEN. SNORE-LIKE NOISES HEARD. O2 SAT 97% WILL MONITOR.
--- NOTE | 2016-11-30 21:12 | NUR ---
SON AT BEDSIDE. REMAINS MAKING SNORE-LIKE NOISES WITH MOUTH OPEN.
--- NOTE | 2016-11-30 21:50 | NUR ---
ASSISTED UP TO BATHROOM. AMBULATED TO RESTROOM. WANTED TO SIT UP IN CHAIR AFTER BATHROOM AND ASSISTED WITH SETTING UP IN CHAIR. WANTS TO WAIT TO GO BACK TO BED TO DO VAGINAL MED. DID EYE DROPS HERSELF. FSBS-132. WILL MONITOR.
--- NOTE | 2016-11-30 23:02 | NUR ---
REASSESSMENT COMPLETED. SEE ASSESSMENT. REQUESTED IV TORADOL. TORADOL GIVEN. REPORTS PAIN TO ABDOMEN AND BACK. WILL MONITOR.
--- NOTE | 2016-11-30 23:06 | NUR ---
PLACED BACK ON 1LPM/NC O2 DUE TO O2 SATS 88% ON ROOM AIR AFTER LAYING BACK DOWN.
--- NOTE | 2016-11-30 23:55 | NUR ---
LEFT SC CVL IV TUBING KINKING THE WAY SHE IS MOVING. TAPED TUBING TO CHEST TO PREVENT KINKING. WILL MONITOR.
[2016-12-01] VITALS (14 sets, daily range): BP systolic 110–149; BP diastolic 53–68
--- NOTE | 2016-12-01 01:00 | NUR ---
REQUESTING BENADRYL FOR SLEEP/ITCHING. EDVIN DEL ROSARIO GAVE IV BENADRYL.
--- NOTE | 2016-12-01 02:15 | NUR ---
EYES CLOSED. MOUTH OPEN. NO ACUTE DISTRESS NOTED. WILL MONITOR.
--- NOTE | 2016-12-01 03:30 | NUR ---
ASSISTED UP TO BATHROOM BY UNHOOKING MONITORING EQUIPMENT. ENCOURGAED TO SIT IN THE CHAIR DUE TO CHEST LEAD VULCANIZING OPERATOR WILL BE HERE SOON TO GET HER FOR PA & LAT XRAY. REPORTS HER BACK HURTS TOO MUCH TO SIT IN THE CHAIR.
--- NOTE | 2016-12-01 04:10 | NUR ---
OVER TO XRAY VIA WHEELCHAIR. TOLERATED WELL. AFTER XRAY SAT UP ON SIDE OF BED. RECONNECTED TO IV PUMP AND ALL MONITORING DEVICES. REASSESSMENT COMPLETED. SEE ASSESSMENT FLOWSHEET. NO NEW ACUTE CHANGES NOTED. ICE PACK TO LOWER BACK PER REQUEST. WILL MONITOR.
--- NOTE | 2016-12-01 05:05 | NUR ---
REQUESTED IV TORADOL AND BENADRYL FOR ITCHING. SEE EMAR. O2 BACK ON. WILL MONITOR.
[2016-12-01 06:02] LABS: BASOPHILS 0.1 % (0-2); EOSINOPHILS 5.5 % (0-7); HEMATOCRIT 32.2 % (36.0-48.0); HEMOGLOBIN 10.7 g/dL (12-16); IMMATURE GRANULOCYTES 0.3 % (0-5); LYMPHOCYTES 20.2 % (15-50); MCH 28.7 pg (26.0-34.0); MCHC 33.2 g/dL (31.0-37.0); MEAN PLATELET VOLUME 9.1 fL (7.4-10.4); MONOCYTES 9.7 % (2-11); NEUTROPHILS 64.2 % (40-80); PLATELET COUNT 154 10x3/uL (130-400); RBC 3.73 10x6/uL (4.00-5.40)
[2016-12-01 06:05] LABS: MCV 86.3 fL (80.0-100.0); WBC 6.7 10x3/uL (4.8-10.8)
[2016-12-01 06:25] LABS: CALC OSMOLALITY 271 mosm/kg (275-300); CALCIUM 8.2 mg/dL (8.5-10.1); CARBON DIOXIDE 26.2 mmol/L (21.0-32.0); CHLORIDE - SERUM 103 mmol/L (98-107); CREATININE - SERUM 0.5 mg/dL (0.6-1.3); GLUCOSE 165 mg/dL (74-106); POTASSIUM - SERUM 4.6 mmol/L (3.5-5.1); SODIUM 135 mmol/L (136-145); UREA NITROGEN 7 mg/dL (7-18); eGFR NON AFRICAN AMERICAN > 90 mL/min (90-120)
--- NOTE | 2016-12-01 07:47 | NUR ---
RECIEVED ASLEEP-RESPIRATIONS REG AND DEEP-SR ON MONITOR-O2 AT 1L YARD FOREMAN-NIBP IN PLACE
--- NOTE | 2016-12-01 11:34 | OP ---
PATIENT NAME: MELITON VEE MEDICAL RECORD: [id number] :65 LOCATION:[id number] ADMISSION DATE:11/27/16 SURGEON: PRATEEK RICO MD DATE OF OPERATION: 11/27/2016 SURGEON: Prateek Rico MD. ANESTHESIA: General endotracheal, Dr. Mckinney. OPERATION PERFORMED: 1. Aortic endarterectomy. 2. Aortobifemoral bypass. PREOPERATIVE DIAGNOSES: Leriche syndrome, severe claudication. POSTOPERATIVE DIAGNOSES: Leriche syndrome, severe claudication. INDICATION FOR OPERATION: Life-limiting claudication. FINDINGS OF THE OPERATION: The aorta was clotted to the level of the renal arteries. 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 There was material clot in the aorta from the renal arteries to the inferior mesenteric artery. The aorta required an endarterectomy at the level of the renal arteries. ESTIMATED BLOOD LOSS: Cell Saver was used. DESCRIPTION OF PROCEDURE: After informed consent, adequate preoperative medication evaluation, the patient was brought to the operating room, placed on the table in the supine position. After induction of general endotracheal anesthesia and application of appropriate monitoring devices, the chest, neck, abdomen, and both legs were prepped and draped in a sterile field, utilizing Betadine scrub, alcohol, and Betadine solution. A Betadine-impregnated drape was also used. Bilateral groin incisions were made above the inguinal ligament. Dissection carried down the fascia. Hemostasis maintained with electrocautery. The inguinal ligaments were elevated and the common femoral, distal iliac arteries were dissected free bilaterally. Utilizing sharp dissection, the retroperitoneal tunnel was made under direct vision. A median celiotomy incision was then made and dissection carried down the fascia. The linea alba was opened and for approximately 10 cm below the umbilicus, the abdomen was examined. The aorta was calcified. There was no other pathology noted. The NG tube was placed. A Bookwalter retractor was placed in the wound and the retroperitoneum exposed. The aorta was dissected free of the retroperitoneum and retracted to the right. The retroperitoneum was then opened from the renal vein to the bifurcation of the iliac arteries. Utilizing careful sharp dissection, the aorta was dissected around the femoral arteries bilaterally around the aorta in the suprarenal area as well as the infrarenal to the level of the internal mesenteric artery. The patient was given a calculated dose of heparin. Vessel loops were tying around the renal arteries and the suprarenal clamp was placed. The aorta was opened 3 cm below the takeoff of the renal arteries and there was soft material clot in the aorta. The proximal aorta underwent an endarterectomy utilizing sharp and blunt dissection and copious amounts of irrigation. The clamp was then moved in the infrarenal position and the renal arteries reperfused. The aorta sized to a 12 x 6 graft. A cuff of graft was placed around the aorta circumference and an end-to-side anastomosis OPERATIVE REPORT [id number] NANDA,MELITON BROWN to the bifurcated trimmed anterior graft was made in the end utilizing running 2-0 Prolene suture. The anastomosis was tested and was competent. The limbs were then carried through the retroperitoneum just anterior to the iliac arteries into the groins bilaterally. The distal anastomoses were accomplished end-to-side utilizing a running 6-0 Prolene suture. All maneuvers to remove trapped air were performed. The clamps were removed sequentially. There was excellent flow through the grafts bilaterally. The patient was given a calculated dose of protamine to reverse the heparin. Hemostasis was achieved. The wounds were irrigated with copious amounts of antibiotic solution and normal saline. Instrument counts and sponge counts were correct times 2. The groin incisions were closed with 2-0 Vicryl, 3-0 Vicryl and 5-0 subcuticular Monocryl. The abdomen was again examined for hemostasis. There was no bleeding. The abdomen was irrigated with copious amounts of antibiotic solution and normal saline. The retroperitoneum was reperitonealized and the bowel placed back in its anatomic position. The hand was again irrigated. Instrument count and sponge counts were correct times 2. The abdomen was closed in layers utilizing 0 Ethibond on the linea alba, 2-0 Vicryl on subcutaneous tissue and skin approximated with skin romeo. Sterile dressings were applied. The patient tolerated the procedure well and was transferred to the CV ICU in satisfactory condition. The aortobifemoral graft was a Hemashield gold knitted double velour vascular graft, 12 x 6, reference number [id number], lot number [id number]. TRANSINT:[id number] Voice Confirmation ID: [id number] DOCUMENT ID: [id number] PRATEEK RICO MD at 1134 CC: [id number] DICTATION DATE: 11/27/16 1422 REAL ESTATE OPERATIONS MANAGER: 11/27/162058 ADM IN [place] [id number] [place] [id number]
--- NOTE | 2016-12-01 12:05 | NUR ---
914-PT AWAKE AND ALERT-BECAME VERY ANXIOUS AND APPEARED TO START CRYING-STATED NEEDED PHYSICAL THERAPY RIGHT NOW TO WALK -STATED NOT ABLE TO TAKE HER PAIN MEDICATION -ENCOURAGED TO USE WOOD DIE MAKER-PT CLARIFIED FOR TORADOL-PHYSICAL THERAPY PGED AND SITUATION DESCRIBED 919-[facility] AT [facility]
--- NOTE | 2016-12-01 12:08 | NUR ---
1115-DR RICO AT [facility]-NOTED PP -BOUNDING R FOOT AND PALPABLE L -PT STATES EASIER TO AMBULATE-PLACED ON ROOM AIR- INCENTIVE DONE -2200-KBRN
--- NOTE | 2016-12-01 16:00 | NUR ---
AMBULATED OVER 500 FEET PER SELF. DENIES NEEDS. NO INCREASED PAIN WITH ACTIVITY.
--- NOTE | 2016-12-01 18:54 | NUR ---
ATE MOST OF REGULAR SUPPER TRAY. NO C/O AT THIS TIME. DENIES NEEDS. TAKES SELF TO BR.
[2016-12-02 04:00] VITALS: BP 134/69
[2016-12-02 06:03] LABS: HEMATOCRIT 31.5 % (36.0-48.0); HEMOGLOBIN 10.5 g/dL (12-16); MCH 28.8 pg (26.0-34.0); MCHC 33.3 g/dL (31.0-37.0); MCV 86.5 fL (80.0-100.0); RBC 3.64 10x6/uL (4.00-5.40); RDW 13.7 % (11.5-14.5); WBC 5.3 10x3/uL (4.8-10.8)
[2016-12-02 06:58] LABS: CALC OSMOLALITY 275 mosm/kg (275-300); CALCIUM 8.5 mg/dL (8.5-10.1); CARBON DIOXIDE 27.7 mmol/L (21.0-32.0); CHLORIDE - SERUM 105 mmol/L (98-107); CREATININE - SERUM 0.5 mg/dL (0.6-1.3); GLUCOSE 123 mg/dL (74-106); POTASSIUM - SERUM 4.1 mmol/L (3.5-5.1); SODIUM 139 mmol/L (136-145); UREA NITROGEN 4 mg/dL (7-18); eGFR NON AFRICAN AMERICAN > 90 mL/min (90-120)
--- NOTE | 2016-12-02 07:00 | NUR ---
REPORT RECIEVED ASSUMED CARE. PATIENT IN BED WITH IV INTACT. NO COMPLAINTS. CALL LIGHT WITHIN REACH.
[2016-12-02 08:06] VITALS: BP 128/61
--- NOTE | 2016-12-02 12:09 | NUR ---
DRESSING TO ABDOMEN CHANGED AT THIS TIME WELL BILATERAL GROINS. ABDOMEN INCISION CDI WITH YAQUELIN. NO SIGNS OF REDNESS OR INFECTION. NO DRAINAGE AT THIS TIME. CLEANED WITH NS AND IODINE SWABS. IODINE OINTMENT APPLIED AT THIS TIME AND NEW DRESSING APPLIED. GROIN DRESSINGS REMOVED AND CLEANED WITH NS AND IODINE SWAB. IODINE OINTMENT APPLIED AND NEW DRESSINGS PLACED. PATIENT TOLERATED WITH NO PAIN. IV INTACT. CALL LIGHT WITHIN REACH.
[2016-12-02 19:00] VITALS: BP 132/72
--- NOTE | 2016-12-02 22:22 | NUR ---
REC'D LYING IN BED. ALERT AND ORIENTED X4. REPORTED PAIN 7/10. WILL ADMIN MEDS PRESCRIBED. NO DISTRESS NOTED. DRESSING IS DRY AND INTACT. WILL CONT TO MONITOR THROUGHOUT NIGHT. INSTRUCTED TO CALL IF NEEDED WITH ANYTHING, VERBALIZED UNDERSTANDING. BED LOW, LOCKED, CALL LIGHT IN REACH.
[2016-12-03] VITALS: BP 123/56
--- NOTE | 2016-12-03 01:20 | NUR ---
PT SITTING ON SIDE OF BED. NO DISTRESS NOTED. CALL LIGHT WITHIN REACH.
[2016-12-03 04:00] VITALS: BP 112/56
--- NOTE | 2016-12-03 05:05 | NUR ---
RESTING WELL, NO DISTRESS NOTED. WILL CONT TO MONITOR. BED LOW, LOCKED, CALL LIGHT IN REACH.
[2016-12-03 06:09] LABS: HEMATOCRIT 35.1 % (36.0-48.0); HEMOGLOBIN 11.5 g/dL (12-16); MCH 28.3 pg (26.0-34.0); MCHC 32.8 g/dL (31.0-37.0); MCV 86.5 fL (80.0-100.0); MEAN PLATELET VOLUME 9.4 fL (7.4-10.4); RBC 4.06 10x6/uL (4.00-5.40); RDW 13.6 % (11.5-14.5); WBC 4.7 10x3/uL (4.8-10.8)
[2016-12-03 06:45] LABS: CALCIUM 8.2 mg/dL (8.5-10.1); CARBON DIOXIDE 27.5 mmol/L (21.0-32.0); CHLORIDE - SERUM 104 mmol/L (98-107); CREATININE - SERUM 0.5 mg/dL (0.6-1.3); POTASSIUM - SERUM 4.1 mmol/L (3.5-5.1); SODIUM 140 mmol/L (136-145); eGFR NON AFRICAN AMERICAN > 90 mL/min (90-120)
[2016-12-03 06:48] LABS: CALC OSMOLALITY 280 mosm/kg (275-300); GLUCOSE 173 mg/dL (74-106); UREA NITROGEN 7 mg/dL (7-18)
--- NOTE | 2016-12-03 07:30 | NUR ---
RECIEVED PT DURING WALKING ROUNDS. PT RATES PAIN OF A 5 ON A SCALE OF 1-10, NO MEDICATION TO BE GIVEN AT THIS TIME. ASSESSMENT DONE PER FLOWSHEET. BED IN LOW POSITION AND CALL LIGHT WIHTIN REACH. WILL CONTINUE TO MONITOR.
[2016-12-03 08:24] VITALS: BP 115/57
--- NOTE | 2016-12-03 09:50 | NUR ---
DRESSING REMOVED FROM ABDOMEN BY MIGUEL ÁNGEL FIORE, NURSE WITH . INSTRUCTED PT TO LEAVE INCISION OPEN TO AIR PT AWAITING DISCHARGE. BED IN LOW POSITION AND CALL LIGHT EFRA MORALES. WILL CONTINUE TO MONITOR.
[2016-12-03 12:24] VITALS: BP 118/64
[2016-12-03] MEDS ORDERED: HYDROCODONE-APA1 TAB PO (13:35)
--- NOTE | 2016-12-03 15:26 | NUR ---
PT DISCHARGED HOME VIA WHEELCHAIR TO HOME WITH A FAMILY MEMBER. DISCHARGE INSTRUCTIONS GIVEN.
--- NOTE | 2016-12-03 15:34 | NUR ---
LATE ENTRY: PATIENT DISCHARGED HOME WITH HOUSE CALLS. DID NOT WANT HOME HEALTH. PATIENT WENT HOME BY PRIVATE CAR.
== END 2016-12-03 15:33 | disposition home or self-care (01) | DRG 269 ==
LOC: D.SDCHOLD 07:30 → D.CVICU 13:20 → D.MS 12-01 13:18
PROVIDERS: Anesthesiology; Family Medicine; ADMIT Internal Medicine Cardiovascular Disease
PROC: 04U00JZ Supplement Abdominal Aorta with Synthetic Substitute, Open Approach (ICD-10-PCS; 2016-11-27)
PROC: 04C00ZZ Extirpation of Matter from Abdominal Aorta, Open Approach (ICD-10-PCS; principal; 2016-11-27 07:30)
PROC: 04100JK Bypass Abdominal Aorta to Bilateral Femoral Arteries with Synthetic Substitute, Open Approach (ICD-10-PCS; principal; 2016-11-27 07:30)
DX: I74.09 Other arterial embolism and thrombosis of abdominal aorta (principal); F17.203 Nicotine dependence unspecified, with withdrawal; I73.9 Peripheral vascular disease, unspecified; N76.0 Acute vaginitis; E11.65 Type 2 diabetes mellitus with hyperglycemia; I10 Essential (primary) hypertension; M32.9 Systemic lupus erythematosus, unspecified; H40.9 Unspecified glaucoma; H92.02 Otalgia, left ear

== ENCOUNTER → 2018-05-20 08:01 | Outpatient (CLI) | payer OTHER ==
[2016-11-28 13:54] VITALS: BMI 37.0
== END | disposition home or self-care (01) ==
LOC: D.US 08:00
DX: I65.23 Occlusion and stenosis of bilateral carotid arteries (principal)

== ENCOUNTER → 2018-06-10 08:40 | Outpatient (CLI) | payer OTHER ==
[2016-11-28 13:54] VITALS: BMI 37.0
[~2018-06-10 08:40] MED LIST changes: +ALBUTEROL SULF8.5 GM INH; +ASPIRIN81 MG PO; +HYDROCODON-ACE1 EA10 PO; +LIPITOR80 MG PO; +MELATONIN5 MG PO; +MULTI-DAY VITAM1 TAB PO; +PIOGLITAZONE15 MG PO; +PLAVIX75 MG PO; +PROZAC20 MG PO; +SUPER B-COMPLEX PO; +TEMAZEPAM30 MG PO
== END | disposition home or self-care (01) ==
LOC: D.CT 06-09 13:30
DX: I65.22 Occlusion and stenosis of left carotid artery (principal)

== ENCOUNTER 2018-06-26 08:45 | Inpatient (IN) | payer OTHER ==
[~2018-06-26] VITALS: Ht 170.2 cm; Wt 107.2 kg
[~2018-06-26 08:45] MED LIST changes: -ALBUTEROL SULF8.5 GM INH; -ASPIRIN81 MG PO; -LIPITOR80 MG PO; -MELATONIN5 MG PO; -MULTI-DAY VITAM1 TAB PO; -PIOGLITAZONE15 MG PO; -PLAVIX75 MG PO; -PROZAC20 MG PO; -SUPER B-COMPLEX PO; -TEMAZEPAM30 MG PO
[2018-06-30] MEDS ORDERED: PLAVIX75 MG PO (09:15)
[2018-06-30] MEDS ORDERED: PROZAC20 MG PO (09:15)
[2018-06-30] MEDS ORDERED: PIOGLITAZONE15 MG PO (09:16)
[2018-06-30] MEDS ORDERED: LIPITOR80 MG PO (09:17)
[2018-06-30] MEDS ORDERED: ALBUTEROL SULF8.5 GM INH (09:18)
[2018-06-30] MEDS ORDERED: TEMAZEPAM30 MG PO (09:19)
[2018-06-30] MEDS ORDERED: MULTI-DAY VITAM1 TAB PO (09:19)
[2018-06-30] MEDS ORDERED: MELATONIN5 MG PO (09:20)
[2018-06-30] MEDS ORDERED: SUPER B-COMPLEX PO (09:20)
[2018-06-30 09:53] LABS: HEMATOCRIT 41.5 % (36.0-48.0); HEMOGLOBIN 13.9 g/dL (12-16); MCH 28.2 pg (26.0-34.0); MCHC 33.5 g/dL (31.0-37.0); MCV 84.2 fL (80.0-100.0); MEAN PLATELET VOLUME 8.7 fL (7.4-10.4); RBC 4.93 10x6/uL (4.00-5.40); RDW 14.6 % (11.5-14.5); WBC 7.8 10x3/uL (4.8-10.8)
[2018-06-30 09:57] LABS: INR 0.87 (0.85-1.17); PROTIME 11.4 SECONDS (11.6-15.0)
[2018-06-30 09:58] LABS: APTT 27.1 SECONDS (22.8-39.4)
[2018-06-30 10:02] LABS: ALBUMIN 3.7 g/dL (3.4-5.0); ALKALINE PHOSPHATASE 103 U/L (46-116); ALT (SGPT) 49 U/L (10-68); BILIRUBIN - TOTAL 0.31 mg/dL (0.2-1.3); CALC OSMOLALITY 281 mosm/kg (275-300); CALCIUM 9.6 mg/dL (8.5-10.1); CHLORIDE - SERUM 101 mmol/L (98-107); CREATININE - SERUM 0.7 mg/dL (0.6-1.3); GLUCOSE 168 mg/dL (74-106); POTASSIUM - SERUM 4.1 mmol/L (3.5-5.1); PROTEIN - SERUM 7.4 g/dL (6.4-8.2); SODIUM 138 mmol/L (136-145); UREA NITROGEN 18 mg/dL (7-18); eGFR NON AFRICAN AMERICAN > 90 mL/min (90-120)
[2018-06-30 10:10] LABS: APPEARANCE CLEAR (CLEAR); BILIRUBIN NEGATIVE (NEGATIVE); COLOR YELLOW (YELLOW); GLUCOSE NEGATIVE (NEGATIVE); KETONE NEGATIVE (NEGATIVE); NITRITE NEGATIVE (NEGATIVE); PROTEIN NEGATIVE (NEGATIVE); UROBILINOGEN NORMAL (NORMAL)
[2018-07-02] VITALS (46 sets, daily range): BP systolic 98–140; BP diastolic 46–77; Ht 170.2 cm; Wt 107.2 kg
--- NOTE | 2018-07-02 11:13 | NUR ---
1017 PT ARRIVED TO ROOM ALERT AND ORIENTED ON SIMPLE MASK 6 L WEANED TO 4L NC, L NECK CEA INCISION CDI WITH ROMANA DRAIN COMPRESSED AND SCANT BLOODY DRAINAGE, ICE PACK APPLIED, R SUBCLAVIAN CVL DRESSING CDI WITH PLASMALYTE TURNED DOWN TO 30ML/HR, R RADIAL ART LINE ZEROED, GOOD WAVEFORM, WRIST PROTECTOR IN PLACE, CRITICORE STEWARD DRAINING YELLOW URINE, SCDS IN PLACE, DR RICO UPDATED FRIEND TEGAN, CALL LIGHT WITHIN REACH, WILL CONTINUE TO MONITOR
--- NOTE | 2018-07-02 13:15 | NUR ---
PT RESTING QUIETLY. NEURO CHECK DONE. EQUAL DRAWER MAKER. MOVES ALL EXTREMITIES. NO TRACHEAL DEVIATION NOTED. WILL CONTINUE TO MONITOR.
--- NOTE | 2018-07-02 14:50 | NUR ---
HEAD SENSORS REMOVED. PT ABLE TO MOVE ALL EXTREMITIES. EQUAL CREDIT PROCESSOR. ICEPACK ON LEFT SIDE OF NECK. CALL LIGHT IN REACH. WILL CONTINUE TO MONITOR.
--- NOTE | 2018-07-02 17:27 | NUR ---
PT RESTING QUIETLY. REPOSITIONED. NEURO CHECKS DONE. NO TRACHEAL DEVIATION. NITRO INFUSING AT 10ML/HR IN RIGHT SUBCLAVIAN CENTRAL LINE. DRESSING TO LEFT NECK C/D/I. NO OTHER NEEDS AT THIS TIME. WILL CONTINUE TO MONITOR.
--- NOTE | 2018-07-02 19:20 | NUR ---
PT AWAKE AND ALERT. BEDSIDE REPORT COMPLETED. PT STATES THAT SHE IS STILL HURTING SOME IN HER SHOULDER AND BACK. DRSG L NECK IS CDI. NO STRIDOR, NO TRACHEAL DEVIATION. NEURO CHECK COMPLETE. NO DEFICETS. NO DIFFICULTY SWALLOWING. ROMANA DRAIN HAS A SMALL AMOUNT OF BLOODY DRAINAGE. IT IS COMPRESSED. R SC CVL WITH NITRO BEING TITRATED TO MAINTAIN BP 90-140. ICE PACK IN PLACE TO INCISION SITE. HOB ELEVATED. CRITICORE STEWARD WITH CONCENTRATED URINE DRAINING. WILL CONTINUE TO MINITOR.
--- NOTE | 2018-07-02 19:50 | NUR ---
GIVEN ULTRAM PER REQUEST FOR PAIN.
--- NOTE | 2018-07-02 21:30 | NUR ---
PO MEDS GIVEN. NO DIFFICULTY SWALLOWING. NEURO CHECKS REMAIN NORMAL.
--- NOTE | 2018-07-02 22:55 | NUR ---
GIVEN TORADOL IVP FOR SHOULDER AND NECK PAIN. NO CHANGES IN ASSESSMENT. ICE PACKS REFILLED.
--- NOTE | 2018-07-02 23:45 | NUR ---
NITRO GTT PAUSED. PT REPORTD BEING PAIN FREE.
[2018-07-03] VITALS (33 sets, daily range): BP systolic 92–136; BP diastolic 42–77
--- NOTE | 2018-07-03 05:15 | NUR ---
MASSIEL STANFORD AT BEDSIDE. ROMANA PULLED PER STERILE TECHNIQUE. 2X2 APPLIED. A LITER BAG APPLIED FOR PRESURE. TO STAY FOR 30 MIN
--- NOTE | 2018-07-03 08:24 | NUR ---
REPORT RECEIVED. SHIFT ASSESSMENT COMPLETE. PT AWAKE. C/O PAIN. PAIN MEDICATION PROVIDED TO HER. HAS ICE PACK AT INCISION SITE. BREAKFAST TRAY PROVIDED. CLEAR LIQUIDS. PT READY FOR SOLID FOOD. DIETARY ORDER PLACED FOR DIABETIC DIET AND BREAKFAST TRAY.
--- NOTE | 2018-07-03 08:43 | NUR ---
UPDATED PT PREFERRED PHARMACY TO [facility] SHE REQUESTED. PT ASKED ABOUT HER LAMICTAL. NOT ON HER HOME MEDICATION LIST AT THIS TIME. SAYS IT SHOULD BE. CANNOT REMEMBER DOSING. HAVING FAMILY SEND HER THE INFO TO UPDATE HER MEDICATION LIST.
--- NOTE | 2018-07-03 09:56 | OP ---
PATIENT NAME: MELITON VEE MEDICAL RECORD: [id number] :65 LOCATION:[id number] ADMISSION DATE:07/02/18 SURGEON: PRATEEK RICO MD DATE OF OPERATION: 07/02/2018 SURGEON: Prateek Rico MD ANESTHESIA: General endotracheal, Dr. Sheehan. OPERATION PERFORMED: Left carotid endarterectomy with patch angioplasty. PREOPERATIVE DIAGNOSIS: Severe left internal carotid artery stenosis. POSTOPERATIVE DIAGNOSIS: Severe left internal carotid artery stenosis. INDICATION FOR OPERATION: Severe left internal carotid artery stenosis. FINDINGS AT OPERATION: Severe left internal carotid artery stenosis with area of stenosis greater than 90%. ESTIMATED BLOOD LOSS: Less than 50 mL. DESCRIPTION OF PROCEDURE: After informed consent, adequate preoperative medication evaluation, the patient was brought to the operating room, placed on the table in the supine position. After induction of general endotracheal anesthesia and application of appropriate monitoring devices, the left neck and chest were prepped and draped in sterile field, utilizing Betadine scrub, alcohol, and Betadine solution. A Betadine-impregnated drape was also used. An oblique incision was made in the skin crease. Dissection was carried down the fascia. Hemostasis maintained with electrocautery. Facial vein was identified and divided. Utilizing sharp dissection, the common carotid, internal and external carotid arteries were dissected free of surrounding structures, protecting the neurological structures. The patient was given a calculated dose of heparin, after 3 minutes, clamps were applied. After 2 minutes, no EEG change. The arteriotomy was made and extended with Dennis scissors. Artery underwent endarterectomy sharply. Artery underwent extensive debridement and irrigation. Utilizing a CorMatrix vascular patch, running 7-0 Prolene suture, the arteriotomy was closed with a patch angioplasty technique. All maneuvers to remove trapped air were performed. The clamps were removed sequentially. There were no EEG changes. The patient was given a calculated dose of protamine to reverse the heparin. Hemostasis was achieved. A #7 Henrique-Sorensen drain was left in the depths of the wound and brought out through the base of the neck. Neck was again irrigated. Instrument and sponge count were correct times 2. Neck was closed in layers utilizing 3-0 Vicryl on the platysma, 5-0 subcuticular Monocryl on the skin. Sterile dressings were applied. The patient tolerated the procedure well and transferred to the CV ICU in satisfactory condition. TRANSINT:[id number] Voice Confirmation ID: [id number] DOCUMENT ID: [id number] OPERATIVE REPORT [id number] MELITON VEE EDWARD MD at 0956 CC: [id number] DICTATION DATE: 07/02/18 1011 PROCESSOR SOLID PROPELLANT: 07/02/18 1023 ADM IN [place] [id number] [place] [address]
--- NOTE | 2018-07-03 10:52 | NUR ---
RIGHT RADIAL ART LINE REMOVED, TIP INTACT, NO BLEEDING. STEWARD CATHETER REMOVED, TIP INTACT. IV FLUIDS DISCONTINUED. PT UP TO WALK WITH PHYSICAL THERAPIST. NO DISTRESS. GAIT STEADY. PT NOW UP IN CHAIR AT BEDSIDE. CALL LIGHT IN REACH.
--- NOTE | 2018-07-03 11:47 | NUR ---
LUNCH TRAY PROVIDED. CUP OF ICE GIVEN REQUESTED. NO ADDITIONAL NEEDS VOICED.
--- NOTE | 2018-07-03 13:20 | NUR ---
PT REQUESTED SHEETS BE PLACED ON BED SO SHE CAN LAY DOWN ON HER SIDE. CHRONIC BACK PAIN BOTHERING HER SITTING UP IN CHAIR TOO LONG.
[2018-07-03] MEDS ORDERED: ASPIRIN81 MG PO (15:45)
--- NOTE | 2018-07-03 17:28 | NUR ---
CENTRAL LINE REMOVED, TIP INTACT. RESTED 20 MINS. NO BLEEDING. DISCHARGE INSTRUCTIONS PROVIDED. WHEELED VIA WHEELCHAIR TO AWAITING CAR.
--- NOTE | 2018-07-03 18:11 | MORECARE ---
CASE MANAGEMENT DISCHARGE SUMMARY PATIENT: MELITON VEE UNIT: [id number] ADM DATE: 07/02/18 AGE: 53 : 65 SEX: F [facility] AUTHOR: WILFRID PULIDO PHYSICIAN: REFERRING PHYSICIAN: GABRIELA RICO MD DATE OF SERVICE: 07/03/18 Discharge Plan Patient Name: [facility]ELITON VEE [facility] [facility] 1965 Planned Disposition: Home Anticipated Discharge Date: Discharge Date: 07/03/2018 Expected LOS: Initial Reviewer: [email or web address] Initial Review Date: 07/02/2018 Generated: 07/03/18 7:11 pm DCPIA - Discharge Planning Initial Assessment Updated by [email or web address]: Mady Cain on 07/03/18 6:10 pm * Is the patient Alert and Oriented? Yes * How many steps to enter\exit or inside your home? * PCP clemons * Pharmacy [facility] * Preadmission Environment Home with Family * ADLs Independent * Equipment Cane * List name and contact numbers for known caregivers / representatives who currently or will assist patient after discharge: amelie Jacobsen - [phone] * Verbal permission to speak to the caregivers and representatives has been obtained from the patient. N/A * Community resources currently utilized None * Additional services required to return to the preadmission environment? No * Can the patient safely return to the preadmission environment? Yes * Has this patient been hospitalized within the prior 30 days at any hospital? No Patient Name: MELITON VEE Page [phone] at 1811 All edits/amendments must be made on the electronic document DICTATION DATE: 07/03/181810 COMMUNICATIONS TOWER CLIMBER: MAXWELL 07/03/181810 RPT#: [id number] DC DATE:07/03/18 STATUS: DIS IN [facility] [address] [place] [address] END OF REPORT
--- NOTE | 2018-07-03 18:20 | MORECARE ---
CASE MANAGEMENT DISCHARGE SUMMARY PATIENT: MELITON VEE UNIT: [id number] ADM DATE: 07/02/18 AGE: 53 : 65 SEX: F ROOM/BED: D[facility] AUTHOR: TESS,DOC PHYSICIAN: REFERRING PHYSICIAN: GABRIELA RICO MD DATE OF SERVICE: 07/03/18 Discharge Plan Patient Name: MELITON VEE Facility: [facility]:[place] : 1965 Planned Disposition: Home Anticipated Discharge Date: Discharge Date: 07/03/2018 Expected LOS: Initial Reviewer: [email or web address] Initial Review Date: 07/02/2018 Generated: 07/03/18 7:20 pm Comments DCP- Discharge Planning Updated by [email or web address]: Mady Cain on 07/03/18 5:[address] Patient Name: MELITON VEE Admission Status: Elective Accout number: [id number] Admission Date: 07-02-2018 : 1965 Admission Diagnosis:OCCLUSION AND STENOSIS OF LEFT CAROTID ARTERY Attending: GABRIELA RICO Current LOS: 1 Anticipated DC Date: Planned Disposition: Home Primary Insurance: [employer] Discharge Planning Comments: CM met with patient at bedside. Patient states she lives at home with her roommate and plans to return to their home upon discharge. Patient denies any discharge needs at this time. CM will continue to follow and assist as needed with discharge planning / needs. Actor Understudy: Mady Cain DCPIA - Discharge Planning Initial Assessment Updated by [email or web address]: Mady Cain on 07/03/18 6:10 pm * Is the patient Alert and Oriented? Yes * How many steps to enter\exit or inside your home? * PCP clemons * [facility] * Preadmission Environment Home with Family * ADLs Independent * Equipment Cane * List name and contact numbers for known caregivers / representatives who currently or will assist patient after discharge: amelie Jacobsen - [phone] * Verbal permission to speak to the caregivers and representatives has been obtained from the patient. N/A * Community resources currently utilized None * Additional services required to return to the preadmission environment? No * Can the patient safely return to the preadmission environment? Yes * Has this patient been hospitalized within the prior 30 days at any hospital? No Last DP export: 07/03/18 5:11 p Patient Name: MELITON VEE Page [phone] at 1820 All edits/amendments must be made on the electronic document DICTATION DATE: 07/03/181818 HEALTH PROGRAM ANALYST: MAXWELL 07/03/181818 RPT#: [id number] DC DATE:07/03/18 STATUS: DIS IN [facility] [address] [place] [address] END OF REPORT
--- NOTE | 2018-07-04 19:12 | MORECARE ---
CASE MANAGEMENT DISCHARGE SUMMARY PATIENT: MELITON VEE UNIT: [id number] ADM DATE: 07/02/18 AGE: 53 : 65 SEX: F ROOM/BED: D[facility] AUTHOR: TESS,DOC PHYSICIAN: REFERRING PHYSICIAN: GABRIELA RICO MD DATE OF SERVICE: 07/04/18 Discharge Plan Patient Name: MELITON VEE Facility: [facility]:[place] : 1965 Planned Disposition: Home Anticipated Discharge Date: Discharge Date: 07/03/2018 Expected LOS: Initial Reviewer: [email or web address] Initial Review Date: 07/02/2018 Generated: 07/04/18 8:11 pm Comments DCP- Discharge Planning Updated by [email or web address]: Mady Cain on 07/03/18 5:[address] Patient Name: MELITON VEE Admission Status: Elective Accout number: [id number] Admission Date: 07-02-2018 : 1965 Admission Diagnosis:OCCLUSION AND STENOSIS OF LEFT CAROTID ARTERY Attending: GABRIELA RICO Current LOS: 1 Anticipated DC Date: Planned Disposition: Home Primary Insurance: [employer] Discharge Planning Comments: CM met with patient at bedside. Patient states she lives at home with her roommate and plans to return to their home upon discharge. Patient denies any discharge needs at this time. CM will continue to follow and assist as needed with discharge planning / needs. Corporate Giving Manager: Mady Cain DCPIA - Discharge Planning Initial Assessment Updated by [email or web address]: Mady Cain on 07/03/18 6:10 pm * Is the patient Alert and Oriented? Yes * How many steps to enter\exit or inside your home? * PCP [facility] * Pharmacy [facility] * Preadmission Environment Home with Family * ADLs Independent * Equipment Cane * List name and contact numbers for known caregivers / representatives who currently or will assist patient after discharge: amelie Jacobsen - [phone] * Verbal permission to speak to the caregivers and representatives has been obtained from the patient. N/A * Community resources currently utilized None * Additional services required to return to the preadmission environment? No * Can the patient safely return to the preadmission environment? Yes * Has this patient been hospitalized within the prior 30 days at any hospital? No Last DP export: 07/03/18 5:20 p Patient Name: MELITON VEE Page [id number] at 1912 All edits/amendments must be made on the electronic document DICTATION DATE: 07/04/181910 ACADEMIC COUNSELOR: MAXWELL 07/04/181910 RPT#: [id number] DC DATE:07/03/18 STATUS: DIS IN [facility] [address] [place] [address] END OF REPORT
== END 2018-07-03 17:29 | disposition home or self-care (01) | DRG 39 ==
LOC: D.SDCHOLD 07-02 05:00 → D.CVICU 07-02 05:00 → D.SDCHOLD 07-02 07:30 → D.CVICU 07-02 09:38
PROVIDERS: ADMIT Internal Medicine Cardiovascular Disease; ATTEND Internal Medicine Cardiovascular Disease
PROC: 03UL0JZ Supplement Left Internal Carotid Artery with Synthetic Substitute, Open Approach (ICD-10-PCS; 2018-07-02)
PROC: 03CL0ZZ Extirpation of Matter from Left Internal Carotid Artery, Open Approach (ICD-10-PCS; principal; 2018-07-02 07:30)
DX: I65.22 Occlusion and stenosis of left carotid artery (principal); E11.65 Type 2 diabetes mellitus with hyperglycemia; I10 Essential (primary) hypertension; I73.9 Peripheral vascular disease, unspecified; E78.5 Hyperlipidemia, unspecified; H40.9 Unspecified glaucoma; F17.200 Nicotine dependence, unspecified, uncomplicated